=== PATIENT | female | born 1970 | race African-American/Black ===

== ENCOUNTER 2017-04-25 23:04 | Emergency (ER) | payer MEDICAID, OTHER ==
[~2017-04-25] VITALS: Ht 162.6 cm; Wt 76.0 kg
[2017-04-26 05:13] VITALS: BP 148/88
== END 2017-04-26 13:00 | disposition home or self-care (01) ==
LOC: ER 23:04
DX: B02.9 Zoster without complications (principal)
CPT/HCPCS: 99283

== ENCOUNTER 2018-01-21 19:17 | Emergency (ER) | payer MEDICAID, OTHER ==
[~2018-01-21] VITALS: Ht 162.6 cm; Wt 111.0 kg
[2018-01-21 20:34] LABS: BASOPHILS % 1.1 % (0.0-2.0); HEMATOCRIT. 33.3 % (36.0-48.0); HEMOGLOBIN. 10.9 g/dL (12.0-16.0); LYMPHOCYTES % 31.8 % (20.0-50.0); MEAN CORPUSCULAR HEMOGLOBIN 23.9 pg (28.0-32.0); MEAN PLATELET VOLUME 7.4 fl (7.4-10.4); MONOCYTES % 10.2 % (2.0-8.0); NEUTROPHILS % 54.9 % (40.0-76.0); PLATELET 318 x1000/uL (130-400); RED BLOOD CELL COUNT 4.57 mill/uL (4.2-5.4); RED CELL DISTRIBUTION WIDTH 14.4 % (11.6-14.6)
[2018-01-21 20:37] LABS: CHLORIDE 102 mEq/L (98-107)
[2018-01-21 20:38] LABS: PROTHROMBIN TIME 10.8 sec (9.4-11.6)
[2018-01-21] MEDS ORDERED: POTASSIUM CHLORIDE 20MEQ TABLET SR PO ONE (22:00)
[2018-01-21] MEDS ORDERED: ACETAMINOPHEN WITH CODEINE 300/30MG TABLET PO ONE (22:00)
[2018-01-21 23:10] VITALS: BP 151/89
== END 2018-01-21 23:15 | disposition home or self-care (01) ==
LOC: ER 19:17
DX: R07.9 Chest pain, unspecified (principal); R06.02 Shortness of breath; J45.909 Unspecified asthma, uncomplicated; I10 Essential (primary) hypertension; E87.6 Hypokalemia; Z98.890 Other specified postprocedural states
CPT/HCPCS: 36415; 71045; 80053; 84484; 85025; 85610; 93005; 99285; Z7610

== ENCOUNTER 2019-10-27 15:37 | Emergency (ER) | payer MEDICAID ==
[~2019-10-27] VITALS: Ht 162.6 cm; Wt 99.0 kg
[2019-10-27] MEDS ORDERED: ALBUTEROL (0.083%) 2.5MG/3ML NEB HHN STA (17:00)
[2019-10-27] MEDS ORDERED: IPRATROPIUM BROMIDE (0.02%) 0.5MG/2.5ML NEB HHN STA (17:00)
[2019-10-27] MEDS ORDERED: PREDNISONE 20MG TABLET PO STA (17:00)
[2019-10-27 18:45] VITALS: BP 118/78
== END 2019-10-27 18:47 | disposition home or self-care (01) ==
LOC: ER 15:37
DX: J45.901 Unspecified asthma with (acute) exacerbation (principal); I10 Essential (primary) hypertension; J20.9 Acute bronchitis, unspecified; Z98.890 Other specified postprocedural states
CPT/HCPCS: 71045; 81025; 99283; J7512; J7611

== ENCOUNTER 2019-11-03 21:53 | Emergency (ER) | payer MEDICAID ==
[~2019-11-03] VITALS: Ht 162.6 cm; Wt 123.0 kg
[2019-11-04 00:18] VITALS: BP 149/82
== END 2019-11-04 00:15 | disposition home or self-care (01) ==
LOC: ER 21:53
DX: J01.90 Acute sinusitis, unspecified (principal); J06.9 Acute upper respiratory infection, unspecified; R51 Headache
CPT/HCPCS: 99281; 99283

== ENCOUNTER 2021-10-03 15:39 | Emergency (ER) | payer MEDICAID ==
[~2021-10-03] VITALS: Ht 162.6 cm; Wt 77.0 kg
[2021-10-03 15:48] VITALS: BP 154/73
[2021-10-03] MEDS ORDERED: ALBU6.7H9 INH (16:50)
[2021-10-03] MEDS ORDERED: P20 MT (16:50)
== END 2021-10-03 18:49 | disposition left against medical advice (07) ==
LOC: ER 15:39
DX: R06.2 Wheezing (principal); Z20.822 Contact with and (suspected) exposure to COVID-19
CPT/HCPCS: 93005; 99283

== ENCOUNTER 2021-11-27 02:02 | Emergency (ER) | payer MEDICAID ==
[~2021-11-27] VITALS: Ht 162.6 cm; Wt 77.0 kg
[~2021-11-27 02:02] MED LIST: ALBU6.7H9 INH; P20 MT
[2021-11-27] MEDS ORDERED: ACETAMINOPHEN 325MG TABLET PO ONE (02:45)
[2021-11-27] MEDS ORDERED: ASPIRIN 325MG EC TABLET PO ONE (02:45)
[2021-11-27] MEDS ORDERED: NITROGLYCERIN 0.4MG TABLET SL SL ONE (02:45)
[2021-11-27 02:55] LABS: EOSINOPHILS % 1.4 % (0.0-5.0); HEMATOCRIT. 34.9 % (36.0-48.0); HEMOGLOBIN. 11.5 g/dL (12.0-16.0); LYMPHOCYTES % 30.2 % (20.0-50.0); MEAN CORPUSCULAR HEMOGLOBIN 23.4 pg (28.0-32.0); MEAN CORPUSCULAR VOLUME 70.8 fL (81.0-99.0); MEAN PLATELET VOLUME 7.4 fl (7.4-10.4); MONOCYTES % 8.3 % (2.0-8.0); NEUTROPHILS % 59.1 % (40.0-76.0); PLATELET 333 x1000/uL (130-400); RED BLOOD CELL COUNT 4.92 mill/uL (4.2-5.4); RED CELL DISTRIBUTION WIDTH 14.3 % (11.6-14.6)
[2021-11-27 03:10] LABS: CHLORIDE 103 mEq/L (98-107)
[2021-11-27 03:21] LABS: B-HCG QUANTITATIVE < 1 mIU/mL (<3)
[2021-11-27] MEDS ORDERED: POLY17PO3 MT (03:49)
[2021-11-27 04:00] VITALS: BP 153/89
[2021-11-27] MEDS ORDERED: KETOROLAC 60MG/2ML VIAL IM ONE (04:00)
== END 2021-11-27 04:04 | disposition home or self-care (01) ==
LOC: ER 02:02
DX: K85.90 Acute pancreatitis without necrosis or infection, unspecified (principal); R07.89 Other chest pain; E78.00 Pure hypercholesterolemia, unspecified
CPT/HCPCS: 36415; 71045; 76705; 80053; 83690; 83880; 84484; 84702; 85025; 93005; 96372; 99285; J1885

== ENCOUNTER 2022-04-09 19:25 | Emergency (ER) | payer MEDICAID, OTHER ==
[~2022-04-09] VITALS: Ht 162.6 cm; Wt 90.0 kg
[~2022-04-09 19:25] MED LIST changes: +POLY17PO3 MT
[2022-04-09 19:29] VITALS: BP 158/81
== END 2022-04-09 22:44 | disposition left against medical advice (07) ==
LOC: ER 19:25
DX: Z53.21 Procedure and treatment not carried out due to patient leaving prior to being seen by health care provider (principal)

== ENCOUNTER 2023-03-04 07:41 | Emergency (ER) | payer MEDICAID, OTHER ==
[~2023-03-04] VITALS: Ht 162.6 cm; Wt 128.0 kg
[~2023-03-04 07:41] MED LIST changes: +ALBU6.7H3 INH; -ALBU6.7H9 INH
[2023-03-04] MEDS ORDERED: IBUPROFEN 400MG TABLET PO ONE (08:45)
[2023-03-04] MEDS ORDERED: ACETAMINOPHEN 325MG TABLET PO ONE (08:45)
[2023-03-04 09:00] VITALS: BP 187/95
[2023-03-04] MEDS ORDERED: ACET-2708 MT (11:05)
[2023-03-04] MEDS ORDERED: IBUP-2028 MT (11:05)
== END 2023-03-04 11:32 | disposition home or self-care (01) ==
LOC: ER 07:41
DX: M25.531 Pain in right wrist (principal); I10 Essential (primary) hypertension; Z98.890 Other specified postprocedural states; E11.9 Type 2 diabetes mellitus without complications
CPT/HCPCS: 29125; 73110; 73200; 99284

== ENCOUNTER 2023-03-07 01:09 | Emergency (ER) | payer OTHER ==
[~2023-03-07] VITALS: Ht 162.6 cm; Wt 99.0 kg
[~2023-03-07 01:09] MED LIST changes: +ACET-2708 MT; +IBUP-2028 MT
[2023-03-07 04:13] VITALS: BP 124/68
== END 2023-03-07 04:15 | disposition home or self-care (01) ==
LOC: ER 01:09
DX: S69.91XA Unspecified injury of right wrist, hand and finger(s), initial encounter (principal); Z46.89 Encounter for fitting and adjustment of other specified devices; X58.XXXA Exposure to other specified factors, initial encounter; Y93.89 Activity, other specified; Y92.89 Other specified places as the place of occurrence of the external cause; Y99.8 Other external cause status
CPT/HCPCS: 29125; 99283

== ENCOUNTER 2023-12-15 21:20 | Emergency (ER) | payer OTHER ==
[~2023-12-15] VITALS: Ht 162.6 cm; Wt 104.0 kg
[2023-12-15 21:33] VITALS: O2SAT 98
[2023-12-16] MEDS ORDERED: TRAM50TA3 MT (00:14)
[2023-12-16] MEDS ORDERED: NAPR-681 PO (00:14)
[2023-12-16] MEDS: KETOROLAC 60MG/2ML VIAL IM STA (00:16)
[2023-12-16 00:33] VITALS: BP 177/94; PULSE 68; RESP 18; TEMP 97.7
== END 2023-12-16 00:34 | disposition home or self-care (01) ==
LOC: ER 21:20
DX: S43.491A Other sprain of right shoulder joint, initial encounter (principal); Z98.890 Other specified postprocedural states
CPT/HCPCS: 99283; 73030; 96372; J1885

== ENCOUNTER 2024-05-11 04:14 | Emergency (ER) | payer OTHER ==
[~2024-05-11] VITALS: Ht 162.6 cm; Wt 94.0 kg
[~2024-05-11 04:14] MED LIST changes: +NAPR-681 PO; +TRAM50TA3 MT
[2024-05-11 04:22] VITALS: TEMP 98.7; O2SAT 99
[2024-05-11 04:52] LABS: DIFFERENTIAL COMMENT 0; EOSINOPHILS % 1.3 % (0.0-5.0); HEMATOCRIT. 35.8 % (36.0-48.0); HEMOGLOBIN. 11.2 g/dL (12.0-16.0); LYMPHOCYTES % 35.7 % (20.0-50.0); MEAN CORPUSCULAR HEMOGLOBIN 22.9 pg (28.0-32.0); MEAN CORPUSCULAR HGB CONC 31.4 g/dL (31.0-37.0); MEAN CORPUSCULAR VOLUME 73.1 fL (81.0-99.0); MEAN PLATELET VOLUME 7.6 fl (7.4-10.4); PLATELET 322 x1000/uL (130-400); RED CELL DISTRIBUTION WIDTH 13.7 % (11.6-14.6); WHITE BLOOD COUNT 5.6 x1000/uL (4.5-11.0)
[2024-05-11 05:02] LABS: CHLORIDE 100 mEq/L (98-107); POTASSIUM 3.4 mEq/L (3.5-5.1); SODIUM 136 mEq/L (136-145)
[2024-05-11 05:03] LABS: CALCIUM 9.3 mg/dL (8.7-10.4); CARBON DIOXIDE 27 mEq/L (21-32)
[2024-05-11 05:08] LABS: CREATININE 1.1 mg/dL (0.6-1.0); GLUCOSE 136 mg/dL (70-105); UREA NITROGEN BLOOD 23 mg/dL (9-23)
[2024-05-11 05:10] LABS: ALANINE AMINOTRANSFERASE 17 IU/L (10-49); ALBUMIN 4.6 g/dL (3.2-4.8); ASPARTATE AMINOTRANSFERASE 16 IU/L (<34); BILIRUBIN DIRECT 0.1 mg/dL (<=3.0); BILIRUBIN TOTAL 0.3 mg/dL (0.1-1.0); PROTEIN TOTAL 7.5 g/dL (6.0-8.3)
[2024-05-11 07:41] LABS: CLARITY URINE CLEAR (CLEAR); COLOR URINE YELLOW (YELLOW); GLUCOSE URINE NEGATIVE (NEGATIVE); KETONES URINE NEGATIVE (NEGATIVE); LEUKOCYTE ESTERASE URINE 1+ (NEGATIVE); NITRITE URINE NEGATIVE (NEGATIVE); OCCULT BLOOD URINE NEGATIVE (NEGATIVE); PH URINE 5.5 (4.5-8.0); PROTEIN URINE NEGATIVE (NEGATIVE); SPECIFIC GRAVITY URINE 1.026 (1.005-1.030)
[2024-05-11 08:27] LABS: SQUAMOUS EPITHELIAL CELL URINE RARE /lpf (RARE/1+); URIC ACID CRYSTALS URINE 3+ /lpf
[2024-05-11 08:28] LABS: BACTERIA URINE TRACE
[2024-05-11 08:29] LABS: MUCUS URINE TRACE /lpf (< = 2+); WBC URINE 0-2 /hpf (0-2)
[2024-05-11 08:30] LABS: RBC URINE 0-2 /hpf (0-2)
[2024-05-11 08:31] LABS: TRICHOMONAS URINE FEW
[2024-05-11] MEDS ORDERED: MECL-299 MT (11:07)
[2024-05-11 11:20] VITALS: BP 114/70; PULSE 78; RESP 18
== END 2024-05-11 11:27 | disposition home or self-care (01) ==
LOC: ER 04:14
DX: R42 Dizziness and giddiness (principal); E11.9 Type 2 diabetes mellitus without complications; I10 Essential (primary) hypertension; Z79.899 Other long term (current) drug therapy; Z98.890 Other specified postprocedural states
CPT/HCPCS: 36415; 80048; 80076; 81003; 81025; 85025; 99284

== ENCOUNTER 2024-06-08 19:28 | Emergency (ER) | payer OTHER ==
[~2024-06-08] VITALS: Ht 162.6 cm; Wt 96.0 kg
[~2024-06-08 19:28] MED LIST changes: +MECL-299 MT
[2024-06-08 19:52] VITALS: O2SAT 98
[2024-06-09] MEDS: KETOROLAC 15MG/ML VIAL IM ONE (00:51)
[2024-06-09 01:03] VITALS: BP 148/90; PULSE 83; RESP 17; TEMP 36.61404; O2SAT 98
== END 2024-06-09 01:04 | disposition home or self-care (01) ==
LOC: ER 19:28
DX: S63.610A Unspecified sprain of right index finger, initial encounter (principal); S59.802A Other specified injuries of left elbow, initial encounter; J45.909 Unspecified asthma, uncomplicated; E11.9 Type 2 diabetes mellitus without complications; I10 Essential (primary) hypertension; Z98.890 Other specified postprocedural states; Z79.899 Other long term (current) drug therapy
CPT/HCPCS: 29130; 73080; 73130; 99284

== ENCOUNTER 2024-09-16 12:39 | Emergency (ER) | payer OTHER ==
[~2024-09-16] VITALS: Ht 162.6 cm; Wt 95.2 kg
[2024-09-16 12:47] VITALS: O2SAT 97
[2024-09-16 12:51] VITALS: O2SAT 98
[2024-09-16 15:07] VITALS: BP 159/67; PULSE 94; RESP 16; TEMP 97.9
[2024-09-16] MEDS: ACETAMINOPHEN 325MG TABLET PO ONE (15:07)
[2024-09-16] MEDS: IBUPROFEN 600MG TABLET PO ONE (15:07)
== END 2024-09-16 17:24 | disposition home or self-care (01) ==
LOC: ER 12:39
DX: S63.501A Unspecified sprain of right wrist, initial encounter (principal); E11.9 Type 2 diabetes mellitus without complications; E78.00 Pure hypercholesterolemia, unspecified; I10 Essential (primary) hypertension; Z79.899 Other long term (current) drug therapy; Z98.890 Other specified postprocedural states; W01.0XXA Fall on same level from slipping, tripping and stumbling without subsequent striking against object, initial encounter; Y93.89 Activity, other specified; Y92.89 Other specified places as the place of occurrence of the external cause; Y99.8 Other external cause status
CPT/HCPCS: 29125; 73110; 99283

== ENCOUNTER 2025-01-20 01:12 | Emergency (ER) | payer OTHER ==
[~2025-01-20] VITALS: Ht 162.6 cm; Wt 95.7 kg
[2025-01-20 01:16] VITALS: O2SAT 100
[2025-01-20] MEDS ORDERED: SULF1TAB48 MT (04:42)
[2025-01-20] MEDS ORDERED: CEPH500T MT (04:42)
[2025-01-20 05:26] VITALS: BP 135/79; PULSE 90; RESP 18; TEMP 36.8
== END 2025-01-20 05:27 | disposition home or self-care (01) ==
LOC: ER 01:21
DX: L60.1 Onycholysis (principal); H00.015 Hordeolum externum left lower eyelid; E11.9 Type 2 diabetes mellitus without complications; I10 Essential (primary) hypertension; E78.00 Pure hypercholesterolemia, unspecified; Z79.899 Other long term (current) drug therapy; Z98.890 Other specified postprocedural states
CPT/HCPCS: 99283